=== PATIENT | female | born 1990 | race Hispanic/Latino ===

== ENCOUNTER 2016-12-13 01:40 | Inpatient (IN) | payer OTHER ==
[~2016-12-13] VITALS: Ht 152.4 cm; Wt 96.2 kg
[~2016-12-13 01:40] MED LIST: NEXPLANON68 M1
--- NOTE | 2016-12-13 09:49 | Admission Core Measures ---
Admission Lab Results I reviewed the following labs: Laboratory Tests 12/14 615 Urines Urine Test NEGATIVE Admission Meds I reviewed the following Meds: Current Medications Sig/Chapo Start time Last Medication Dose Stop Time Status Admin Dexamethasone 10 MG ONCE 12/13 NR (Decadron) 12/13 2358 Heparin Sodium 5,000 UNIT ONCE 12/13 NR (Porcine) 12/13 2358 Acute Coronary Syndrome Inclusion Criteria ACS Diagnosis No Inpatient Core Measures LDL Reminder: If No, please order W/I first 24hr of stay Congestive Heart Failure Inclusion Criteria CHF Diagnosis No Cerebrovascular accident Inclusion Criteria CVA/TIA Diagnosis No Inpatient Core Measures Bedside Swallow Eval Reminder: If BSE failed, place ST order Antithrombotic Reminder: Order Antithrombotic Medication by end of day 2 Antithrombotic Reminder: Document Reason Antithrombotic Not ordered by end of day 2 AFIB/Flutter Reminder: If Present, add to problem list AFIB/Flutter Reminder: Order Anticoag Medication for pts with AFIB/Flutter Atherosclerosis Reminder: If Present, add to problem list LDL Reminder: If No, please order W/I first 24hr of stay PT Order Reminder: If No, please order Venous thromboembolism Inpatient Core Measures VTE Risk Factors: Obesity, Surgery No [facility] VTE prophylaxis d/t No contraindications No VTE Pharm Prophylaxis d/t No contraindications Inclusion Criteria - Per Current guidelines, there needs to be overlap - treatment for the first 5 days of Warfarin therapy. - Parenteral Anticoagulation (IV or SC) needs to be - given along with Warfarin therapy. VTE Diagnosis No VTE Type NONE VTE Confirmed by (Test) NONE Problem List As ranked by this Provider includes Assessment & Plan 1. S/P laparoscopic sleeve gastrectomy 2. Pre-diabetes 3. Asthma 4. Morbid obesity
[2016-12-13 10:08] LABS: ABSOLUTE BASOPHIL COUNT 0.1 /CUMM (0.0-0.2); ABSOLUTE EOSINOPHIL COUNT 0.1 /CUMM (0.0-0.7); ABSOLUTE GRANULOCYTE CT 12.6 /CUMM (1.4-6.5); ABSOLUTE LYMPH COUNT 2.2 /CUMM (1.2-3.4); ABSOLUTE MONOCYTE COUNT 0.4 /CUMM (0.10-0.60); BASOPHIL % 0.5 % (0.0-2.0); EOSINOPHIL % 0.7 % (0-5); GRANULOCYTE % 81.8 % (42.2-75.2); HEMATOCRIT 38.1 % (37-47); MEAN CORPUSCULAR HGB 27.4 PG (27.0-31.0); MEAN CORPUSCULAR HGB CONC 33.1 G/DL (33.0-37.0); MEAN CORPUSCULAR VOLUME 82.7 FL (81.0-99.0); MEAN PLATELET VOLUME 7.6 FL (7.4-10.4); PLATELET COUNT 332 /CUMM (130-400); RBC DISTRIBUTION WIDTH 15.6 % (11.5-14.5); WHITE BLOOD CELL COUNT 15.4 /CUMM (4.8-10.8)
[2016-12-13] MEDS ORDERED: HYCET 7.5 MG-3473 ML PO (10:44)
[2016-12-13] MEDS ORDERED: PROTONIX40 M3 PO (10:44)
--- NOTE | 2016-12-13 10:47 | Patient Discharge Instructions ---
Discharge Instructions General Discharge Information You were seen/treated for: morbid obesity, hx pre-diabetes You had these procedures: laparoscopic sleeve gastrectomy (12/13/16) Watch for these problems: fever>101.3, increased pain, redness/swelling/drainage No bath, but you may shower: Yes Other wound care: ok to remove outer dressings. leave white steri strips in place. expect drainage from drain site, for which you can use dry guaze dressings daily until it stops draining. Diet Continue normal diet: No Recommended Diet: Bariatric Additional DIET Information: weekly bariatric stage diet advancement, as tolerated, as directed Activity Full Activity/No Limits: No Activity Self Limited: Yes Pounds, do NOT lift more than: 10 Other activity limits: no heavy lifting. no strenuous activity. Additional ACTIVITY Info: walk frequently Acute Coronary Syndrome Inclusion Criteria At DC or during hospital stay patient has or had the following: ACS DIAGNOSIS No Discharge Core Measures Meds if any: Prescribed or Continued at Discharge Meds if any: NOT Prescribed or Continued at Discharge Congestive Heart Failure Inclusion Criteria At DC or during hospital stay patient has or had the following: CHF DIAGNOSIS No Discharge Core Measures Meds if any: Prescribed or Continued at Discharge Meds if any: NOT Prescribed or Continued at Discharge Cerebrovascular accident Inclusion Criteria At DC or during hospital stay patient has or had the following: CVA/TIA Diagnosis No Discharge Core Measures Meds if any: Prescribed or Continued at Discharge Meds if any: NOT Prescribed or Continued at Discharge Venous thromboembolism Inclusion Criteria VTE Diagnosis No VTE Type NONE VTE Confirmed by (Test) NONE Discharge Core Measures - Per Current guidelines, there needs to be overlap - treatment for the first 5 days of Warfarin therapy. - If discharged on Warfarin prior to 5 days of - overlap therapy, the patient will need to be - assessed for post discharge needs including - *Post discharge parental anticoagulation - *Warfarin and/or parental anticoagulation education - *Follow up date to check INR post discharge At least 5 days overlap therapy as Inpatient No Meds if any: Prescribed or Continued at Discharge Note: Overlap Therapy is Warfarin and Anticoagulant Meds if any: NOT Prescribed or Continued at Discharge
--- NOTE | 2016-12-13 10:57 | Surg Short-stay <48hrs Dis Sum ---
Visit Information Visit Dates Admission Date: 12/13/16 Discharge Date: 12/15/16 Surgical Short Stay DC Summary Admission Diagnosis: morbid obesity, hx pre-diabetes, asthma Final Diagnosis: same, s/p lap sleeve gastrectomy (12/13/16) Procedure(s): laparoscopic sleeve gastrectomy (12/13/16) Summary/Significant Findings: Electively schedule laparoscopic sleeve gastrectomy (12/13/16). Post-op cbc stable in pacu, and toradol held initially, due to some intra-operative blood loss of approximately 150 mls. Started on a stage 1 bariatric diet after surgery. Upper GI study done post-op day#1 to rule out leak, with re-initiation of her stage 1 diet following the study. Pain control transitioned to oral medication in preparation for discharge to home. BRIDGETT drain placed intra-op to monitor for bleeding was removed prior to her discharge home on post-op day#2. Her lovenox score was only a 3, so she will not need to continue lovenox at the time of her discharge to home. Condition at Discharge: stable Discharge Disposition: home or self care Discharge instructions provided to patient/family: Yes Post discharge follow-up plan: discharge instruction sheet provided follow up appointment in one week with no lovenox needed (risk score 3) prescriptions for pain medication and protonix given
[2016-12-13 11:30] VITALS: BP 142/78
--- NOTE | 2016-12-13 13:02 | PN- Bariatrics ---
Subjective Subjective: POST-OP NOTE: Reports some epigastric and left upper quadrant discomfort. Feels nauseous, which is slightly better after medicated in pacu. Slightly dizzy when out of bed to bathroom. No shortness of breath. No chest pains. CBC in pacu done. Objective Vital Signs and I&Os Vital Signs Date Time Temp Pulse Resp B/P Pulse O2 O2 Flow FiO2 Ox Delivery Rate 12/13 1155 98 Nasal 2.0L Cannula Intake & Output 12/13 1600 12/13 0812/13 0000 12/12 1600 12/12 0800 12/12 0000 Intake Total Output Total Balance Patient 212 lb Weight pacu flowsheet reviewed Physical Exam: General - alert & oriented. no acute distress Lungs - clear bilaterally. no w/r/r. Cardiac - s1s2. reg. Abdomen - soft. dressings c/d/i. expected karolyn-incisional tenderness. BRIDGETT drain with dark serosang drainage (surgicel in place in splenic region for intra-op bleeding) Extremities - warm bilaterally. no c/c/e. calves soft and nontender b/l. venodynes active. Results Last 48 Hours of Labs: Laboratory Tests 12/13 12/13 0951 0616 Hematology CBC w Diff NO MAN DIFF REQ WBC (4.8 - 10.8 /CUMM) 15.4 H RBC (4.20 - 5.40 /CUMM) 4.60 Hgb (12.0 - 16.0 G/DL) 12.6 Hct (37 - 47 %) 38.1 MCV (81.0 - 99.0 FL) 82.7 MCH (27.0 - 31.0 PG) 27.4 RDW (11.5 - 14.5 %) 15.6 H Plt Count (130 - 400 /CUMM) 332 MPV (7.4 - 10.4 FL) 7.6 Gran % (42.2 - 75.2 %) 81.8 H Lymphocytes % (20.5 - 51.1 %) 14.1 L Monocytes % (1.7 - 9.3 %) 2.9 Eosinophils % (0 - 5 %) 0.7 Basophils % (0.0 - 2.0 %) 0.5 Absolute Granulocytes (1.4 - 6.5 /CUMM) 12.6 H Absolute Lymphocytes (1.2 - 3.4 /CUMM) 2.2 Absolute Monocytes (0.10 - 0.60 /CUMM) 0.4 Absolute Eosinophils (0.0 - 0.7 /CUMM) 0.1 Absolute Basophils (0.0 - 0.2 /CUMM) 0.1 PUBS MCHC (33.0 - 37.0 G/DL) 33.1 Urines Urine Test NEGATIVE Assessment/Plan Assessment/Plan This 26 year old female with hx morbid obesity is POD#0 s/p lap sleeve gastrectomy, jpx1 stage 1 bariatric diet as tolerated npo pmn for upper gi study in am reletex band in place. zofran prn nausea. consider decadron for persistent nausea pain control as ordered. hold toradol for now monitor BRIDGETT drain hep sc - dvt ppx. lovenox risk score 3 (no lovenox needed at home) oob/ambulation with assistance protonix - gi ppx f/u am labs will d/w Core Measures/Miscellaneous Venous Thromboembolism VTE Risk Factors: Obesity, Surgery VTE Contraindications: No Contraindications VTE Diagnosis: No VTE Type: NONE VTE Confirmed by (Test): NONE Beta Cristina Is Beta Cristina a Home Med? No Antibiotics Is Patient on Antibiotics? No
[2016-12-13 14:44] VITALS: BP 134/82
--- NOTE | 2016-12-13 16:59 | Operative Report ---
Operative/Inv Procedure Report Surgery Date: 12/13/16 Name of Procedure: Laparoscopic Sleeve Gastrectomy Pre-Operative Diagnosis: Morbid Obesity Post-Operative Diagnosis: same Estimated Blood Loss: 150cc Surgeon/Ventilating Engineer: ELINA MIRANDA MD Anesthesia: general endotracheal tube IV Fluids: LR Urine Output: n/a Drains: #10 BRIDGETT x 1 Specimens: portion of stomach Complications: none Condition: stable Operative/Procedure Note Note: After informed consent and proper identification the patient was taken the operating room and placed on the operating table supine position Venodyne stockings were applied she underwent a general endotracheal anesthetic the abdomen was prepped and draped in normal sterile fashion using an Ethicon Visiport and a 0 laparoscope through 1 cm incision in the left upper quadrant we entered the abdominal cavity without difficulty we insufflated the abdomen with 14 mm CO2 pressure the liver was smooth and glistening placed additional trochars 25 mm trochars in each of the subcostal margins a Gretchen liver retractor in the upper midline to retract the left lobe of the liver and a 15 mm trocar in the right mid abdomen. We had anesthesia decompress the stomach with an orogastric tube. We began dissection of the greater curvature vessels approximately 6 cm from the pylorus opposite the angularis and divided all the way up to the fundus of the stomach retracting the fundus of the stomach off of the left chris although the fundus of the stomach was tight against the upper pole of the spleen and white transecting the short gastric vessels we had bleeding from one in the most superior short gastric vessels weight is entered the splenic capsule. We approximately lost 150 mL of blood we applied sponges and Surgicel to the area as well as 2 10 mm hemoclips. This appeared to stop the bleeding. We left sponges and Surgicel in place while we completed the creation of the sleeve. After creation of the sleeve we removed the sponges and Surgicel sponges were taken out of the abdominal cavity although the Surgicel remained I then used a laparoscopic 2-0 Vicryl suture to sew around the area of the vessels stump that had been transected the upper pole of the spleen and reapplied the Surgicel there was no further bleeding. The sleeve was created by having anesthesia remove the orogastric tube in place a 38 [place] [employer] bougie using this as a guide we used an Endo SYLVESTER stapler 2 black load cartridges and 2 purple load cartridges with seam guard to completely transect the stomach. The remnant stomach was removed and a 15 Endo Catch bag. We placed a 10 flat BRIDGETT drain in the gutter between the spleen and the abdominal wall pulled the tubing out through the right upper quadrant quadrant subcostal 5 mm trocar site inserted in place with a 3-0 nylon suture. Removed the rest of the trochars and the Gretchen liver retractor under direct visualization. We closed skin incisions with 4-0 Monocryl subcuticular stitches. Dry sterile dressings were placed. There is no active bleeding at the time of closure and the patient tolerated the procedure without complications Findings: normal liver and no evidence of a hiatal hernia Discharge Disposition: PACU
[2016-12-13 20:20] VITALS: BP 139/76
--- NOTE | 2016-12-13 21:02 | NUR ---
PT C/O NAUSEA AND REPORTS VOMITTING SMALL AMOUNT. SHE ALSO REPORTED DRAINAGE TO DSG ON RUQ AFTER DRY HEAVING. PA TO BEDSIDE FOR EVAL. NEW ORDER FOR DECADRON. PER PA, CONTINUE TO MONITOR.
[2016-12-13 22:00] VITALS: BP 130/72
--- NOTE | 2016-12-14 07:31 | PN- Bariatrics ---
Subjective Subjective: Reports improving nausea. She felt decadron really helped yesterday afternoon. Currently npo awaiting upper gi study. Out of bed without difficulty. No shortness of breath. No chest pains. Slight dizziness when she gets up quickly. Voiding well. No flatus yet. Objective Vital Signs and I&Os Vital Signs Date Time Temp Pulse Resp B/P Pulse O2 O2 Flow FiO2 Ox Delivery Rate 12/14 0600 Room Air 12/13 2199 98.2 75 18 130/72 93 Room Air 12/13 2200 97 12/14 2019 97.6 72 18 139/76 97 Room Air 12/13 2000 97 12/13 1800 87 12/13 1800 95 12/13 1600 97 12/13 1600 98 12/13 1444 97.3 111 20 134/82 96 Room Air 12/13 1155 98 Nasal 2.0L Cannula 12/13 1130 98.0 72 20 142/78 98 Nasal 2.0L Cannula Intake & Output 12/14 0800 12/14 0000 12/13 1600 12/13 0800 12/13 0000 12/12 1600 Intake Total 1000 990 530 Output Total 1975 1400 840 Balance -975 -410 -310 Intake, IV 1000 750 500 Intake, Oral 240 30 Output, 25 40 Drainage Output, Urine 1950 1400 800 Patient 212 lb Weight Physical Exam: General - alert & oriented x 3. comfortable. no acute distress. Lungs - clear bilaterally. no w/r/r. Cardiac - s1s2. reg. Abdomen - soft. dressings stained, but intact. BRIDGETT drain with brownish-red drainage (only 25 o/n) Expected karolyn-incisional tenderness. Extremities - warm bilaterally. no c/c/e. calves soft and nontender b/l. athrombics active. Assessment/Plan Assessment/Plan This 26 year old female with hx morbid obesity is POD#1 s/p lap sleeve gastrectomy, jpx1 npo awaiting upper gi study restart stage 1 bariatric diet if upper gi study negativ reletex band in place. zofran prn nausea. pain control as ordered. hold toradol for now. monitor BRIDGETT drain hep sc - dvt ppx. lovenox risk score 3 (no lovenox needed at home) oob/ambulation with assistance protonix - gi ppx f/u am labs will d/w Core Measures/Miscellaneous Venous Thromboembolism VTE Risk Factors: Obesity, Surgery VTE Contraindications: No Contraindications VTE Diagnosis: No VTE Type: NONE VTE Confirmed by (Test): NONE Beta Cristina Is Beta Cristina a Home Med? No Antibiotics Is Patient on Antibiotics? No
[2016-12-14 07:37] VITALS: BP 132/76
[2016-12-14 09:20] LABS: ABSOLUTE BASOPHIL COUNT 0 /CUMM (0.0-0.2); ABSOLUTE EOSINOPHIL COUNT 0 /CUMM (0.0-0.7); ABSOLUTE GRANULOCYTE CT 10.2 /CUMM (1.4-6.5); ABSOLUTE LYMPH COUNT 0.8 /CUMM (1.2-3.4); ABSOLUTE MONOCYTE COUNT 0.8 /CUMM (0.10-0.60); BASOPHIL % 0.1 % (0.0-2.0); EOSINOPHIL % 0 % (0-5); GRANULOCYTE % 86.3 % (42.2-75.2); HEMATOCRIT 37.2 % (37-47); MEAN CORPUSCULAR HGB 27.2 PG (27.0-31.0); MEAN CORPUSCULAR VOLUME 82.5 FL (81.0-99.0); MEAN PLATELET VOLUME 8.1 FL (7.4-10.4); PLATELET COUNT 320 /CUMM (130-400); RBC DISTRIBUTION WIDTH 16.4 % (11.5-14.5); RED BLOOD CELL CT 4.51 /CUMM (4.20-5.40)
[2016-12-14 10:33] LABS: WHITE BLOOD CELL COUNT 11.8 /CUMM (4.8-10.8)
--- NOTE | 2016-12-14 10:40 | RADIOLOGY REPORT ---
EXAMINATION: FL UPPER GI SERIES CLINICAL INFORMATION: 26-year-old female, status post gastric sleeve surgery. Postop day 1. To assess for presence of leak. COMPARISON: None TECHNIQUE: A single contrast upper GI series with fluoroscopy and spot imaging was performed. The patient ingested Gastrografin without difficulty and was evaluated in the upright and recumbent positions. FINDINGS: Expected postoperative changes of Sleeve gastrectomy is noted. There is no evidence of contrast extravasation to suspect the kidneys identified. There is a drainage tube visualized at the surgical bed. Free flow of Gastrografin into the duodenum is noted. FLUOROSCOPY TIME: 1.37 minutes. NUMBER OF IMAGES: 82 IMPRESSION: Normal postop changes of Sleeve gastrectomy. Specifically no evidence of any sleeve leak visualized.
--- NOTE | 2016-12-14 12:57 | NUR ---
Consult received for diet education s/p sleeve gastrectomy, thank you for consult. Visited with pt this morning. Pt reports some nausea and looking forward to liquids s/p upper GI series. Questions answered, has RD contact information and will call with any questions.
[2016-12-14 14:49] VITALS: BP 137/88
[2016-12-14 22:32] VITALS: BP 122/74
[2016-12-15 07:27] VITALS: BP 123/55
--- NOTE | 2016-12-15 09:21 | PN- Bariatrics ---
Subjective Subjective: comfortable no major complaints this am denies cp, sob, no n+v with stage I diet Objective Vital Signs and I&Os Vital Signs Date Time Temp Pulse Resp B/P Pulse O2 O2 Flow FiO2 Ox Delivery Rate 12/15 07 98.0 63 18 123/55 95 Room Air 12/15 0600 95 Room Air 12/14 2232 97.9 87 18 122/74 98 Room Air 12/14 2200 98 Room Air 12/14 1449 97.7 65 16 137/88 100 Room Air 12/14 1400 100 Room Air Intake & Output 12/15 1600 12/15 0800 12/15 0000 12/14 1600 12/14 0800 12/14 0000 Intake Total 660 961 187 1651 1240 Output Total 661 984 5194 1400 Balance 560 435 -108 -275 -160 Intake, IV 747 493 2932 1000 Intake, Oral 60 210 410 600 240 Output, 18 25 Drainage Output, Urine 241 775 8764 1400 Physical Exam: cv: rrr lungs: clear abd: soft, no guarding to palp ext: warm, distal cms intact Assessment/Plan Assessment/Plan surgical stable plan home d/c later today Core Measures/Miscellaneous Venous Thromboembolism VTE Risk Factors: Obesity, Surgery VTE Contraindications: No Contraindications VTE Diagnosis: No VTE Type: NONE VTE Confirmed by (Test): NONE Beta Cristina Is Beta Cristina a Home Med? No Antibiotics Is Patient on Antibiotics? No
[2016-12-15 14:00] VITALS: BP 118/82
== END 2016-12-15 15:15 | DRG 403 ==
LOC: ENRESERVTM → ENRESERVDT → 2NB 01:40 → SDA 01:40 → ENPENDDIS 01:40 → 2NB 11:26
PROVIDERS: Physician Assistant; ADMIT Surgery
PROC: 0DB64Z3 Excision of Stomach, Percutaneous Endoscopic Approach, Vertical (ICD-10-PCS; principal; 2016-12-13)
DX: E66.01 Morbid (severe) obesity due to excess calories (principal); Z71.3 Dietary counseling and surveillance; J45.909 Unspecified asthma, uncomplicated; R73.03 Prediabetes; Z68.41 Body mass index [BMI] 40.0-44.9, adult
CPT/HCPCS: 2NBP; 36415; 74240; 81025; 82436; 88307; J0131; J0690; J1100; J1170; J1644; J2405; J7042; S5012